=== PATIENT | female | born 1980 | race Two or more races ===

== ENCOUNTER 2024-03-21 13:42 | Inpatient (IN) | payer MEDICAID, SELFPAY ==
[2024-03-20 10:47] VITALS: BMI 27.1
--- NOTE | 2024-03-20 14:12 | EKG_ITS ---
[facility] Test Date: 2024-03-20 Pat Name: HANNAH WESTDepartment: Room: - Gender: Female Wholesale Manager: RTSJC : 1980 Requested By: Nico Begum Order Number: [id number] Reading MD: Nico Begum Measurements Intervals [place] Rate: 66 P: 52 DE: 167 QRS: 29 QRSD: 84 T: 27 QT: 420 QTc: 440 Interpretive Statements SINUS RHYTHM No previous ECG available for comparison /store/S0/[id number]
[2024-03-20 14:39] LABS: Basophils # (Auto) 0.1 Thou/mm3 (0.0-0.2); Basophils % (Auto) 1 % (0-2.5); Eosinophils # (Auto) 0.2 Thou/mm3 (0.0-0.5); Eosinophils % (Auto) 2 % (0-10); Hematocrit 36.2 % (36.0-46.0); Hemoglobin 11.8 g/dL (12.0-16.0); Immature Granulocytes % (Auto) 1 % (0-0); Immature Granulocytes Auto 0.05 Thou/mm3 (0.00-0.00); Lymphocytes # (Auto) 2.5 Thou/mm3 (1.0-4.8); Lymphocytes % (Auto) 34 % (10-50); Mean Corpuscular HGB Conc 32.6 g/dl (31.0-37.0); Mean Corpuscular Hemoglobin 27.3 pg (25.0-35.0); Mean Corpuscular Volume 84 fL (80-100); Monocytes # (Auto) 0.7 Thou/mm3 (0.0-0.8); Monocytes % (Auto) 10 % (0-12); Neutrophils # (Auto) 3.8 Thou/mm3 (1.8-7.7); Neutrophils % (Auto) 52 % (37-80); Nucleated Red Blood Cell % 0 /100 WBC (0); Platelet Count 338 Thou/mm3 (140-440); RDW Standard Deviation 52.9 fL (36.4-46.3); Red Blood Count 4.32 Miln/mm3 (4.00-5.20); White Blood Count 7.4 Thou/mm3 (3.6-11.0)
[2024-03-20 14:52] LABS: Alanine Aminotransferase 38 U/L (10-49); Albumin, Serum 4.3 gm/dL (3.5-5.0); Albumin/Globulin Ratio 1.7 (1.2-2.2); Alkaline Phosphatase 125 U/L (46-116); Anion Gap 7 (7-16); Aspartate Amino Transferase 31 U/L (0-34); BUN/Creatinine Ratio 27 Ratio (12-20); Bilirubin,Total 0.3 mg/dL (0.3-1.2); Blood Urea Nitrogen 16 mg/dL (9-23); Calcium 9.2 mg/dL (8.3-10.6); Calcium (Corrected) 9.2 mg/dL (8.5-10.1); Carbon Dioxide 27.9 mMol/L (20.0-31.0); Chloride 106 mMol/L (98-107); Creatinine (Component) 0.6 mg/dL (0.6-1.3); Globulin 2.5 gm/dL (2.3-3.5); Glucose 70 mg/dL (74-106); Osmolality,Calculated 280 (275-295); Potassium 3.8 mMol/L (3.4-5.1); Sodium 141 mMol/L (136-145); Total Protein 6.8 gm/dL (5.7-8.2); eGFR > 60 See Note
[2024-03-20 14:55] LABS: HCG,Qualitative Serum Negative
[2024-03-21] VITALS (11 sets, daily range): BP systolic 110–156; BP diastolic 63–93; PULSE 65–89; RESP 12–20; TEMP 35.9–36.4; O2SAT 95–100; BMI 27.1
[2024-03-21] MEDS: RINGERS LACTATED 1000 ML 1,000 ML 20 ML IV (09:40)
--- NOTE | 2024-03-21 12:39 | ESOP_ITS ---
Operative Note - STRUCTURAL ANALYST Procedure Date of procedure: 03/21/24 Procedure Performed: Abdominal supracervical hysterectomy, bilateral salpingectomy Indication: Abnormal uterine bleeding, not responding to medical management Fibroid uterus Pre-Op diagnosis: Abnormal uterine bleeding, not responding to medical management Fibroid uterus Post-Op diagnosis: As above Anesthesia type: General Procedure description: Informed consent was obtained patient was taken to the operating room.? General anesthesia was administered and airway was secured.? 2 g of Ancef were given IV, patient was now positioned in the dorsal lithotomy position in Bunny stirrups.? The abdomen and perineum were prepped in the usual sterile fashion and sterile drapes were applied.? The bladder was emptied using a Lan catheter.?Attention was now turned to the patient's abdomen. A medium size uterine manipulator was placed. A 5 mm infraumbilical incision was made using a scalpel.? Laparoscopic entry was accomplished under direct visualization using Optiview laparoscopic trocar.? Once intra-abdominal placement was confirmed pneumoperitoneum was insufflated to 15 mmHg.? The camera was now introduced into the abdomen and a preliminary survey was performed showing uterus of significant size with multiple fibroids, one of them blocking the view towards the bladder, normal tubes and ovaries. A pair of accessory ports were placed 2 cm cephalad and medial to the ASIS after a 5 and 8 mm incisions were done on the right and left side respectively.? Patient was put in Trendelenburg uterus was grasped and firm additions on the posterior aspect of the uterus which included the bowel were noted. General surgery at this time was not available. Given size of the uterus and adhesions decision was made to do open laparotomy. Uterine manipulator was removed A Pfannenstiel incision was made with scalpel and carried out into the fascia with the Bovie. Peritoneum was entered bluntly, noticing approximately 12-week uterus with multiple fibroids noted. Kalin retractor was placed with adequate visualization after the patient was placing Trendelenburg and a moist lap was placed behind the uterus displacing the bowel. Bowel adhesions were noted again and dissected bluntly with excellent hemostasis noted. Hysterectomy started with dissection with LigaSure device of the left fallopian tube along with the utero-ovarian ligament and broad ligament with excellent hemostasis. Broad ligament was dissected until the uterine vessels were skeletonized, ligated and dissected with the Enseal device with excellent hemostasis noted. In the same fashion the same was done on the right side of the uterus with excellent hemostasis noted. Peritoneal adhesions with bowel persisted in the posterior aspect of the cervix, surgery was called and given these findings decision was made to perform a supracervical hysterectomy. Long Sarahi clamps x 2 were placed inferior to the uterus and using the scalpel the specimen was cut and removed. The cervix was then reapproximated with the peritoneum with an 0 Vicryl in a running fashion Irrigation was done and excellent hemostasis was noted after a piece of snow was placed. At this point Kalin retractor was removed and bowel packing as well. Fascia was then closed with 0 Vicryl in a running fashion. Soft cuticular layer was closed with 0 plain running fashion. The skin was now closed using 4-0 Monocryl in a subcuticular fashion Specimen: uterus, left tube and right tube Estimated blood loss (ml): 300 Findings: Fibroid uterus Dense bowel adhesions to the posterior aspect of the uterus Complications: none Surgical staff Operation Date: 03/21/24 10:45 Case Staff YARDAGE CONTROL OPERATOR FORMING: Juanito Olivera RN First Assistant: Meera Schuster Diagnosis Problem List Completed Was Problem List Reviewed/Reconciled?: Yes
--- NOTE | 2024-03-21 12:51 | SUR.PHASEI ---
1251: Pt. wakes to name then drifts back to sleep, vitals stable, breathing unlabored, dressing to ABD CDI, no active bleed noted, kimbrough catheter in place, report received from Anthony DOMINGUEZ and Kelvin CRUZ.
[2024-03-21] MEDS: RINGERS LACTATED 1000 ML 1,000 ML 125 ML IV ×2 (13:12→22:02)
--- NOTE | 2024-03-21 13:25 | SUR.PHASEI ---
1325: Pt. AAOx4, vitals stable, breathing unlabored, no complaint of pain or nausea, dressing to ABD CDI, no active bleed noted, gave report to Shannon CRUZ prior to transfer to room 382, Family made aware of transfer to room.
[2024-03-21] MEDS: HYDROcodone/APAP 5/325 TABLET 1 TAB PO ×2 (17:20→22:01)
[2024-03-21] MEDS: ONDANSETRON INJ 2 MG/ML INJ 2 ML 4 MG IV (17:21)
[2024-03-22] VITALS (7 sets, daily range): BP systolic 108–136; BP diastolic 65–92; PULSE 60–79; RESP 16–94; TEMP 36.4–37.4; O2SAT 95–96
[2024-03-22] MEDS: HYDROcodone/APAP 5/325 TABLET 1 TAB PO ×3 (05:15→16:24)
[2024-03-22 06:03] LABS: Basophils % (Auto) 0 % (0-2.5); Eosinophils # (Auto) 0.1 Thou/mm3 (0.0-0.5); Eosinophils % (Auto) 1 % (0-10); Hematocrit 30.5 % (36.0-46.0); Immature Granulocytes % (Auto) 0 % (0-0); Immature Granulocytes Auto 0.03 Thou/mm3 (0.00-0.00); Lymphocytes # (Auto) 2.1 Thou/mm3 (1.0-4.8); Lymphocytes % (Auto) 18 % (10-50); Mean Corpuscular HGB Conc 32.8 g/dl (31.0-37.0); Mean Corpuscular Hemoglobin 27.2 pg (25.0-35.0); Mean Corpuscular Volume 83 fL (80-100); Monocytes # (Auto) 1.4 Thou/mm3 (0.0-0.8); Monocytes % (Auto) 12 % (0-12); Neutrophils # (Auto) 8.1 Thou/mm3 (1.8-7.7); Neutrophils % (Auto) 69 % (37-80); Nucleated Red Blood Cell % 0 /100 WBC (0); Platelet Count 262 Thou/mm3 (140-440); RDW Standard Deviation 53.5 fL (36.4-46.3); Red Blood Count 3.67 Miln/mm3 (4.00-5.20); White Blood Count 11.6 Thou/mm3 (3.6-11.0)
--- NOTE | 2024-03-22 10:21 | PC.SS ---
Patient Breanna Angelo is a 43 Year old female admitted for [facility] [address]. SS met with patient at bedside to discuss discharge plan. Patient reports she lives at home with her , Phuc Pierre [phone]. Patient reports prior to admission she was able to ambulate with out any source of DME. patient's PCP is Gene Pierre. [place] [facility] [place]. At time of discharge patient will discharge home, will provide transportation. Next of Kin: , Phuc Ignacio Discharge plan: Home
--- NOTE | 2024-03-22 10:59 | PD.GYNPROG ---
Documentation for date of: 03/22/24 CHIEF EXECUTIVE OFFICER Subjective Subjective Interval history: Patient seen at the bedside. Afebrile, tolerating PO, ambulating, voiding, +flatus Exam Vital Signs Temp Pulse Resp BP Pulse Ox O2 Del Method O2 Flow Rate 98.2 F 68 16 108/74 95 Room Air 10 03/22/24 08:00 03/22/24 08:00 03/22/24 08:00 03/22/24 08:00 03/22/24 08:00 03/22/24 08:00 03/21/24 13:01 Routine Abdominal Exam Comments: Soft, NT Incision clean,dry,intact Routine Exam Comments: No bleeding Urinary Catheter Management Cath placed during this visit: yes, but has since been removed by the nurse Removal date: 03/22/24 Removal time: 05:37 CHIEF EXECUTIVE OFFICER - PN: Obj Data Labs 03/22/24 04:24 03/20/24 14:14 Labs: Laboratory Results - last 24 hr 03/22/24 04:24 WBC 11.6 H D RBC 3.67 L Hgb 10.0 L Hct 30.5 L MCV 83 MCH 27.2 MCHC 32.8 RDW Std Deviation 53.5 H Plt Count 262 D Neut % (Auto) 69 Lymph % (Auto) 18 Morton % (Auto) 12 Eos % (Auto) 1 Baso % (Auto) 0 Neut # (Auto) 8.1 H Lymph # (Auto) 2.1 Morton # (Auto) 1.4 H Eos # (Auto) 0.1 Baso # (Auto) 0.0 Immature Gran # (Auto) 0.03 H Absolute Nucleated RBC 0.00 Immature Gran % 0 Nucleated RBC % 0 CHIEF EXECUTIVE OFFICER - A/P Postoperative Procedures: Procedures Operation Date: 03/21/24 10:45 Actual Procedure Side Surgeon p Attempted Total Laparoscopic Hysterectomy Converted to Laparotomy with Bilateral Salpingectomy Nico Gilmore MD Postoperative day: 1 Postoperative status: doing well Postoperative plan: routine post-op care Time Spent With Patient Time: Total time spent is greater than 50% in coordination of care (as documented) at patient's floor/unit and/or counseling patient: Time with patient: 25 - 35 minutes
[2024-03-22] MEDS: DOCUSATE SOD 100 MG CAPSULE PO (11:47)
[2024-03-22] MEDS: Milk Of Magnesia Susp 30 ML UDC PO (11:47)
[2024-03-23] VITALS: BP 122/83; PULSE 73; RESP 16; TEMP 36.7; O2SAT 94
[2024-03-23 01:37] VITALS: PULSE 82; RESP 16; RESP 93
[2024-03-23] MEDS: HYDROcodone/APAP 5/325 TABLET 1 TAB PO ×2 (01:49→09:58)
[2024-03-23 04:00] VITALS: BP 105/79; PULSE 75; RESP 19; TEMP 37.2; O2SAT 94
--- NOTE | 2024-03-23 07:47 | PD.GYNPROG ---
Documentation for date of: 03/23/24 REGIONAL MARKETING DIRECTOR Subjective Subjective Interval history: Patient seen at the bedside. Afebrile, tolerating PO, ambulating, voiding, +flatus Exam Vital Signs Temp Pulse Resp BP Pulse Ox O2 Del Method O2 Flow Rate 99 F 75 19 105/79 94 L Room Air 10 03/23/24 04:00 03/23/24 04:00 03/23/24 04:00 03/23/24 04:00 03/23/24 04:00 03/23/24 04:00 03/21/24 13:01 Routine Abdominal Exam Comments: Soft, non tender Incision clean,dry,intact Routine Exam Comments: No bleeding Urinary Catheter Management Cath placed during this visit: yes, but has since been removed by the nurse Removal date: 03/22/24 Removal time: 05:37 REGIONAL MARKETING DIRECTOR - PN: Obj Data Labs 03/22/24 04:24 03/20/24 14:14 REGIONAL MARKETING DIRECTOR - A/P Postoperative Procedures: Procedures Operation Date: 03/21/24 10:45 Actual Procedure Side Surgeon p Attempted Total Laparoscopic Hysterectomy Converted to Laparotomy with Bilateral Salpingectomy Nico Gilmore MD Postoperative day: 2 Postoperative status: doing well Postoperative plan: routine post-op care and discharge Time Spent With Patient Time: Total time spent is greater than 50% in coordination of care (as documented) at patient's floor/unit and/or counseling patient: Time with patient: 25 - 35 minutes
--- NOTE | 2024-03-23 07:48 | PD.GYNDS ---
Planned Discharge Date 03/23/24 DS: Providers Provider Date of admission: 03/21/24 13:42 Primary care physician: Gene Pierre MD Admitting Provider: Nico Gilmore MD Attending Provider on Admission: Manuelito Metcalf MD Attending Provider on DC: Nico Gilmore MD Discharging Provider: Nico Gilmore MD DS: Diagnosis Problem List Completed Was Problem List Reviewed/Reconciled?: Yes Hospital Course Time Spent with Patient Time attestation: Total time spent providing and/or coordinating discharge services: Quality: VTE Deep Vein Thrombosis/Pulmonary Embolism Present on Admission: No Exam - AGRICULTURAL EQUIPMENT MECHANIC Vital Signs Temp Pulse Resp BP Pulse Ox O2 Del Method O2 Flow Rate 99 F 75 19 105/79 94 L Room Air 10 03/23/24 04:00 03/23/24 04:00 03/23/24 04:00 03/23/24 04:00 03/23/24 04:00 03/23/24 04:00 03/21/24 13:01 Discharge Plan Plan Patient Disposition: HOME (Self Care) Prescriptions/Referrals Prescriptions/Med Rec: New acetaminophen 325 mg Tablet 650 mg PO Q6HR 7 Days Qty: 28 0RF ibuprofen 400 mg Tablet 800 mg PO Q8HR 7 Days Qty: 21 0RF docusate sodium 100 mg Capsule 100 mg PO QDAY 7 Days Qty: 7 0RF No Action amlodipine 10 mg Tablet 10 mg PO QDAY Referrals: Gene Pierre MD [Primary Care Provider] - Manuelito Metcalf MD [Physician] - (1-2 weeks) Patient/Caregiver Discharge Instructions Print Language: British Stand Alone Forms: Rajwinder Award Info., Patient Portal Info Letter Discharge Order Discharge Orders: Discharge (Routine); Ordered 03/23/24 Ordered By: Nico Gilmore
[2024-03-23 08:00] VITALS: BP 120/86; PULSE 69; RESP 16; TEMP 36.2; O2SAT 96
[2024-03-23 08:06] VITALS: PULSE 74; RESP 16; RESP 95
[2024-03-23] MEDS: DOCUSATE SOD 100 MG CAPSULE PO (09:56)
== END 2024-03-23 11:05 | disposition home or self-care (01) | DRG 519 ==
LOC: S3SX 13:43
PROVIDERS: Admitting Provider Obstetrics & Gynecology; PCP Family Medicine; Referring Provider Obstetrics & Gynecology; Visit Provider Obstetrics & Gynecology
PROC: 0UT90ZZ Resection of Uterus, Open Approach (ICD-10-PCS; principal; 2024-03-21 10:30)
DX: D25.9 Leiomyoma of uterus, unspecified (principal); Z53.31 Laparoscopic surgical procedure converted to open procedure
CPT/HCPCS: 36415; 80053; 84703; 85025; 86850; 86900; 86901; 93005; A4649; J0131; J0690; J1885; J2250; J2405; J2704; J3010; J3490; J7120; A9270